=== PATIENT | female | born 1950 | race Caucasian/White ===

== ENCOUNTER 2019-04-10 14:21 | Inpatient (IN) | payer MEDICARE, OTHER ==
[~2019-04-10] VITALS: Ht 167.6 cm; Wt 65.9 kg
[2019-04-10] MEDS ORDERED: ASPIRIN 81 MG TAB.CHEW ONE (14:47)
[2019-04-10] MEDS ORDERED: NITROGLYCERIN 0.4 MG/TAB BOTTLE SL ONE ×2 (14:47→15:00)
[2019-04-10 14:57] LABS: BASOPHILS % (AUTO) 0.5 % (0.0-2.0); EOSINOPHILS # (AUTO) 0.1 K/uL (0.0-0.7); EOSINOPHILS % (AUTO) 1.5 % (0.0-7.0); HEMATOCRIT 44.8 % (31.2-41.9); HEMOGLOBIN 15.2 g/dL (10.9-14.3); LYMPHOCYTES # (AUTO) 1.7 K/uL (20.0-40.0); LYMPHOCYTES % (AUTO) 24.7 % (20.5-51.5); MEAN CORPUSCULAR HEMOGLOBIN 30.9 uug (24.7-32.8); MEAN CORPUSCULAR HGB CONC 34 g/dL (32.3-35.6); MONOCYTES # (AUTO) 0.5 K/uL (2.0-10.0); MONOCYTES % (AUTO) 7.9 % (0.0-11.0); NEUTROPHILS # (AUTO) 4.4 K/uL (1.8-8.9); NEUTROPHILS % (AUTO) 65.4 % (38.5-71.5); PLATELET COUNT (AUTO) 221 K/uL (179-408); RED BLOOD CELL COUNT(AUTO) 4.92 MIL/uL (3.63-4.92); WHITE BLOOD COUNT (AUTO) 6.8 K/uL (3.8-11.8)
[2019-04-10] MEDS ORDERED: ASPIRIN 81 MG TAB.CHEW PO ONE ×2 (15:00)
[2019-04-10 15:02] LABS: CREATININE 1.2 mg/dL (0.6-1.3)
[2019-04-10 15:15] LABS: BILIRUBIN,DIRECT 0.1 mg/dL (0.0-0.2); BILIRUBIN,TOTAL 0.5 mg/dL (0.2-1.0); TOTAL PROTEIN, SERUM 8.3 g/dL (6.4-8.2)
[2019-04-10] MEDS ORDERED: MORPHINE SULFATE 2 MG/1 ML DISP.SYRIN IV ONE (16:00)
[2019-04-10] MEDS ORDERED: ONDANSETRON 4 MG/2 ML VIAL IV ONE (16:00)
[2019-04-10] MEDS ORDERED: MORPHINE SULFATE 2 MG/1 ML DISP.SYRIN ONE (16:02)
[2019-04-10] MEDS ORDERED: ONDANSETRON 4 MG/2 ML VIAL ONE (16:02)
[2019-04-10 17:22] VITALS: BP 122/74
[2019-04-10] MEDS ORDERED: ONDANSETRON 4 MG/2 ML VIAL IV PRN (20:00)
[2019-04-10] MEDS ORDERED: ACETAMINOPHEN 325 MG TABLET PO PRN (20:00)
[2019-04-10] MEDS ORDERED: HYDROCODONE/APAP 5-325MG TABLET PO PRN (20:00)
[2019-04-10 20:19] VITALS: BP 122/74
[2019-04-10] MEDS: ATORVASTATIN 20 MG TABLET PO SCH (20:50)
[2019-04-10] MEDS: MORPHINE SULFATE 2 MG/1 ML DISP.SYRIN IV PRN (20:56)
[2019-04-11 01:36] VITALS: BP 115/81
[2019-04-11] MEDS ORDERED: ZOLPIDEM 5 MG TABLET PO PRN (01:45)
[2019-04-11] MEDS ORDERED: DIAZEPAM 5 MG TABLET PO PRN (01:45)
[2019-04-11] MEDS: NITROGLYCERIN 0.4 MG/TAB BOTTLE SL PRN ×2 (02:04→02:11)
[2019-04-11] MEDS: predniSONE 10 MG TABLET PO SCH ×2 (02:16→09:13)
[2019-04-11] MEDS: ZOLPIDEM 5 MG TABLET PO PRN ×2 (02:23→23:29)
[2019-04-11 04:00] VITALS: BP 115/71
[2019-04-11 07:00] LABS: BASOPHILS % (AUTO) 0.3 % (0.0-2.0); EOSINOPHILS # (AUTO) 0.1 K/uL (0.0-0.7); EOSINOPHILS % (AUTO) 0.6 % (0.0-7.0); HEMATOCRIT 43.6 % (31.2-41.9); HEMOGLOBIN 14.8 g/dL (10.9-14.3); LYMPHOCYTES % (AUTO) 12.9 % (20.5-51.5); MEAN CORPUSCULAR HEMOGLOBIN 30.9 uug (24.7-32.8); MEAN CORPUSCULAR HGB CONC 34 g/dL (32.3-35.6); MEAN CORPUSCULAR VOLUME 91.3 fL (75.5-95.3); MONOCYTES # (AUTO) 0.2 K/uL (2.0-10.0); MONOCYTES % (AUTO) 2.5 % (0.0-11.0); NEUTROPHILS # (AUTO) 6.7 K/uL (1.8-8.9); NEUTROPHILS % (AUTO) 83.7 % (38.5-71.5); PLATELET COUNT (AUTO) 208 K/uL (179-408); RED BLOOD CELL COUNT(AUTO) 4.78 MIL/uL (3.63-4.92); WHITE BLOOD COUNT (AUTO) 7.9 K/uL (3.8-11.8)
[2019-04-11 08:19] LABS: CREATININE 1.3 mg/dL (0.6-1.3); MAGNESIUM 2.6 mg/dL (1.8-2.4); PHOSPHOROUS 3.6 mg/dL (2.5-4.9); POTASSIUM 4.5 mmol/L (3.5-5.1)
[2019-04-11] MEDS: DOCUSATE SODIUM 100 MG CAPSULE PO SCH ×2 (08:40→16:50)
[2019-04-11] MEDS: FAMOTIDINE 20 MG TABLET PO SCH (08:41)
[2019-04-11] MEDS: MULTIVITAMINS,THERAPEUTIC TABLET PO SCH (08:41)
[2019-04-11] MEDS: CHOLECALCIFEROL 1,000 UNIT TABLET PO SCH (08:42)
[2019-04-11] MEDS: METOPROLOL SUCCINATE XL 50 MG TAB.SR.24H PO SCH ×2 (08:42→17:00)
[2019-04-11] MEDS: AMLODIPINE 2.5 MG TABLET PO SCH (08:43)
[2019-04-11] MEDS ORDERED: ASPIRIN 81 MG TAB.CHEW PO SCH (09:00)
[2019-04-11] MEDS: POTASSIUM CHLORIDE 10 MEQ TAB.PRT.SR PO SCH (09:13)
[2019-04-11] MEDS: CULTURELLE CAPSULE PO SCH ×2 (09:14→20:37)
[2019-04-11] MEDS: FUROSEMIDE 20 MG TABLET PO SCH (09:14)
[2019-04-11] MEDS: ropiniROLE 1 MG TABLET PO SCH ×3 (09:14→16:50)
[2019-04-11] MEDS ORDERED: ASPIRIN EC 81 MG TABLET.DR PO SCH (09:45)
[2019-04-11 11:35] VITALS: BP 106/83
[2019-04-11] MEDS: MAGNESIUM OXIDE 250 MG TABLET PO SCH (13:08)
[2019-04-11] MEDS: MORPHINE SULFATE 2 MG/1 ML DISP.SYRIN IV PRN ×2 (13:09→21:39)
[2019-04-11 15:24] VITALS: BP 103/68
[2019-04-11] MEDS: CLOPIDOGREL 75 MG TABLET PO SCH (18:02)
[2019-04-11] MEDS ORDERED: BISACODYL 10 MG SUPP.RECT RC ONE (18:15)
[2019-04-11 20:08] VITALS: BP 110/82
[2019-04-11] MEDS: ATORVASTATIN 20 MG TABLET PO SCH (20:37)
[2019-04-11] MEDS: MAGNESIUM HYDROXIDE 30 ML LIQUID UDC PO PRN (22:02)
[2019-04-12 00:38] LABS: BASOPHILS % (AUTO) 0.3 % (0.0-2.0); EOSINOPHILS # (AUTO) 0.1 K/uL (0.0-0.7); EOSINOPHILS % (AUTO) 0.5 % (0.0-7.0); HEMATOCRIT 41.4 % (31.2-41.9); LYMPHOCYTES # (AUTO) 2.1 K/uL (20.0-40.0); LYMPHOCYTES % (AUTO) 20.4 % (20.5-51.5); MEAN CORPUSCULAR HEMOGLOBIN 30.7 uug (24.7-32.8); MEAN CORPUSCULAR HGB CONC 34 g/dL (32.3-35.6); MEAN CORPUSCULAR VOLUME 90.9 fL (75.5-95.3); MONOCYTES # (AUTO) 0.9 K/uL (2.0-10.0); MONOCYTES % (AUTO) 8.7 % (0.0-11.0); NEUTROPHILS # (AUTO) 7.1 K/uL (1.8-8.9); NEUTROPHILS % (AUTO) 70.1 % (38.5-71.5); PLATELET COUNT (AUTO) 200 K/uL (179-408); RED BLOOD CELL COUNT(AUTO) 4.55 MIL/uL (3.63-4.92); WHITE BLOOD COUNT (AUTO) 10.2 K/uL (3.8-11.8)
[2019-04-12 00:47] VITALS: BP 120/72
[2019-04-12 04:00] VITALS: BP 115/68
[2019-04-12] MEDS: AMLODIPINE 2.5 MG TABLET PO SCH (08:32)
[2019-04-12] MEDS: METOPROLOL SUCCINATE XL 50 MG TAB.SR.24H PO SCH ×2 (08:32→16:28)
[2019-04-12] MEDS: DOCUSATE SODIUM 100 MG CAPSULE PO SCH ×2 (08:33→16:28)
[2019-04-12] MEDS: CULTURELLE CAPSULE PO SCH ×2 (08:33→20:58)
[2019-04-12] MEDS: POTASSIUM CHLORIDE 10 MEQ TAB.PRT.SR PO SCH (08:33)
[2019-04-12] MEDS: ropiniROLE 1 MG TABLET PO SCH ×3 (08:33→16:28)
[2019-04-12] MEDS: MULTIVITAMINS,THERAPEUTIC TABLET PO SCH (08:33)
[2019-04-12] MEDS: predniSONE 10 MG TABLET PO SCH (08:33)
[2019-04-12] MEDS: FAMOTIDINE 20 MG TABLET PO SCH (08:34)
[2019-04-12] MEDS: CHOLECALCIFEROL 1,000 UNIT TABLET PO SCH (08:34)
[2019-04-12] MEDS: FUROSEMIDE 20 MG TABLET PO SCH (08:34)
[2019-04-12] MEDS: MAGNESIUM OXIDE 250 MG TABLET PO SCH (08:34)
[2019-04-12] MEDS: MORPHINE SULFATE 2 MG/1 ML DISP.SYRIN IV PRN ×3 (08:59→19:16)
[2019-04-12 11:30] VITALS: BP 103/64
[2019-04-12 15:50] VITALS: BP 128/72
[2019-04-12] MEDS: CLOPIDOGREL 75 MG TABLET PO SCH (16:28)
[2019-04-12] MEDS ORDERED: IBUPROFEN 400 MG TABLET PO ONE (18:15)
[2019-04-12] MEDS: MAGNESIUM HYDROXIDE 30 ML LIQUID UDC PO PRN (18:21)
[2019-04-12 20:44] VITALS: BP 104/64
[2019-04-12] MEDS: ATORVASTATIN 20 MG TABLET PO SCH (20:57)
[2019-04-13] VITALS: BP 110/64
[2019-04-13] MEDS: ZOLPIDEM 5 MG TABLET PO PRN (00:13)
[2019-04-13] MEDS: MORPHINE SULFATE 2 MG/1 ML DISP.SYRIN IV PRN ×4 (01:22→17:21)
[2019-04-13 04:00] VITALS: BP 122/54
[2019-04-13] MEDS: FAMOTIDINE 20 MG TABLET PO SCH (08:41)
[2019-04-13] MEDS: MULTIVITAMINS,THERAPEUTIC TABLET PO SCH (08:41)
[2019-04-13] MEDS: ropiniROLE 1 MG TABLET PO SCH ×3 (08:41→16:55)
[2019-04-13] MEDS: CHOLECALCIFEROL 1,000 UNIT TABLET PO SCH (08:41)
[2019-04-13] MEDS: DOCUSATE SODIUM 100 MG CAPSULE PO SCH ×2 (08:42→16:54)
[2019-04-13] MEDS: POTASSIUM CHLORIDE 10 MEQ TAB.PRT.SR PO SCH (08:42)
[2019-04-13] MEDS: CULTURELLE CAPSULE PO SCH (08:42)
[2019-04-13] MEDS: predniSONE 10 MG TABLET PO SCH (08:42)
[2019-04-13] MEDS: FUROSEMIDE 20 MG TABLET PO SCH (08:42)
[2019-04-13] MEDS: AMLODIPINE 2.5 MG TABLET PO SCH (08:44)
[2019-04-13] MEDS ORDERED: MAGNESIUM OXIDE 250 MG TABLET PO SCH (09:00)
[2019-04-13] MEDS ORDERED: METOPROLOL SUCCINATE XL 50 MG TAB.SR.24H PO SCH (09:00)
[2019-04-13 11:59] VITALS: BP 105/65
[2019-04-13 15:39] VITALS: BP 102/59
[2019-04-13] MEDS: CLOPIDOGREL 75 MG TABLET PO SCH (17:12)
== END 2019-04-13 18:26 | disposition home or self-care (01) | DRG 74 ==
LOC: ER 14:21 → TELE3 16:44 → MEDSURG3 04-13 17:48
PROVIDERS: ADMIT Nurse Practitioner Acute Care; ATTEND Nurse Practitioner Acute Care
PROC: B2211ZZ Computerized Tomography (CT Scan) of Multiple Coronary Arteries using Low Osmolar Contrast (ICD-10-PCS; principal; 2019-04-12)
DX: M54.12 Radiculopathy, cervical region (principal); I50.32 Chronic diastolic (congestive) heart failure; M48.02 Spinal stenosis, cervical region; R07.9 Chest pain, unspecified; S29.9XXS Unspecified injury of thorax, sequela; S21.9 Open wound of unspecified part of thorax; X58.XXXS Exposure to other specified factors, sequela; I10 Essential (primary) hypertension; I11.0 Hypertensive heart disease with heart failure; Z95.2 Presence of prosthetic heart valve; Z90.49 Acquired absence of other specified parts of digestive tract; Z79.02 Long term (current) use of antithrombotics/antiplatelets; Z86.73 Personal history of transient ischemic attack (TIA), and cerebral infarction without residual deficits; M48.061 Spinal stenosis, lumbar region without neurogenic claudication; I70.0 Atherosclerosis of aorta; I09.9 Rheumatic heart disease, unspecified; E78.00 Pure hypercholesterolemia, unspecified; Z79.899 Other long term (current) drug therapy
CPT/HCPCS: 36415; 70030-TC; 71045; 83735; 84100; 85025; 85730; 93005; 93307; A4663; G0378; J2270; J2405; J7512